=== PATIENT | male | born 1940 | race Caucasian/White ===

== ENCOUNTER → 2016-10-06 | Outpatient (CLI) | payer OTHER ==
[~2016-10-06] VITALS: Ht 177.8 cm; Wt 80.8 kg
[~2016-10-06] MED LIST: ADVIL LIQUI-GE200 MG PO; ALIGN4 MG PO; APAP500 PO; ASPIRIN EC81 M1 PO; CADUET 5 MG-401 EACH PO; COQ-10100 MG PO; FISHOIL PO; HYDROCODONE-AP1 EAC6 PO; METOPROLOL SUCC25 M1 PO; NEURONTIN 300300 M1 PO; NORCO 5-325 TA1 EACH PO; OMEGA 3 FISH OIL; TAMSULOSIN HCL0.4 MG PO; TOPROL XL50 MG PO; VITAMIN C PO; VITAMIN D32000 UNI1 PO; VITAMIN D400 UNI1 PO; VITAMINC500 PO; ZOLOFT 50 MG TA50 M1 PO; ZOLPIDEM TART12.5 M1 PO
--- NOTE | ~2016-10-06 | HPC ---
[facility] [address] [place] [address] PAIN MANAGEMENT CONSULTATION Name: GARCIADARRICK Elayne Room #: REG April Ortiz#: [id number] Admission: 10/06/16 Attend Phys: Negro Mayes DO Discharge: Date of : 39 Report #: [id number] THIS REPORT FOR: //name// CC: Narendra Mayes The patient is a pleasant 76-year-old gentleman being treated for lumbar radiculopathy secondary to spinal stenosis, neuropathic pain requiring complex medication management. Last seen in the pain clinic 07/11/2016. Continued on hydrocodone 5/325, given epidural injection L5-S1. Typically, these injections have afforded good relief, he had had injections since 2012, off and on. Last injection 07/11/2016, however, afforded nominal relief. Injection in March of this year afforded much better relief as did the injection in September and December. He returns to pain clinic today noting pain is primarily low back, buttock, posterior thigh with episodic radiation down to his legs. He has had 2 surgical procedures with installation of a posterior spinous process device between L5-S1 and L4-L5. The patient feels this really did not afford significant efficacy. Again, he notes the last injection at L5-S1 again afforded only nominal relief, 50% for 2 months, which is much less than his prior procedures. We had a long discussion today about therapeutic options and ongoing interval care. I reviewed the MRI from 08/02/2016 which notes the previous posterior fusions at L4-L5 and L5-S1, subluxations appearing unchanged from prior study of 2013, cjbz-ex-sidgmmxt stenosis at L3-L4, pyfn-zd-qvvrumvj stenosis at L4-L5, however, there is bilateral cortical impingement on the exiting roots at L5-S1. There is 2 mm anterolisthesis at this level. PHYSICAL EXAMINATION: Shows 76-year-old gentleman, BMI is 25.6 kilograms per meter squared. Vital signs stable as noted in the EMR. Rises from chair using armrest. Gait is tandem. Lower extremity strength is symmetric. Positive straight leg raise is nominally bilaterally. Diffuse tenderness across the low back. Lumbar flexion is modestly limited. Joanna test is negative. Range of motion of the hip is good. ASSESSMENT: Lumbar radiculopathy status post decompressive laminectomy requiring complex medication management, neuropathic pain component. RECOMMENDATIONS: 1. I had a long discussion with the patient today about therapeutic options. I have taken the liberty of renewing patient's hydrocodone 5/325, limit 3 tablets a day, 90 tablets. 2. We talked about spinal cord stimulator as a possible therapeutic option. 3. I had referred the patient to physical therapy in the past for core strength, although he stopped going. I have taken the liberty of renewing physical therapy today. Core strengthening exercises to be done at [place] [address] PAIN MANAGEMENT CONSULTATION Name: GARCIADARRICK Room #: REG RADHA Ortiz#: [id number] Admission: 10/06/16 Attend Phys: Negro Mayes DO Discharge: Date of : 39 Report #: [id number] 2. Acute exacerbation of lumbar radiculopathy secondary to spinal stenosis. RECOMMENDATIONS: We have elected to proceed with a caudal epidural injection under fluoroscopy today. If this does not afford adequate efficacy, we will feel that epidural injections in the lumbosacral canal seemed to have reached a point of diminishing returns and we will consider simply medication management, spinal cord stimulator as possible therapeutic option. PROCEDURE NOTE: Caudal epidural injection under fluoroscopy. PROCEDURE: After written informed consent was obtained, the patient taken to fluoroscopy suite, placed in prone position. After sterile prep and drape, skin wheal was raised. A 22-gauge epidural Tuohy needle was placed to the sacroiliitis and caudal epidural space. Negative aspiration was accomplished. A 1 mL of Omnipaque was injected, which showed spread within the caudal epidural space. This was followed with 80 mg triamcinolone plus 6 mL of 0.5% preservative-free lidocaine. [place] removed. The area was cleansed, Band-Aids applied. The patient monitored for an appropriate period of time, discharged in good and stable condition. <ELECTRONICALLY SIGNED> By: Negro Mayes DO 10/10/16 0917 1701 0023 Negro Mayes DO /nt
[2016-10-06 13:22] VITALS: BP 131/83
== END ==
LOC: PAIN 07:20
DX: M48.06 Spinal stenosis, lumbar region (principal); M54.16 Radiculopathy, lumbar region; M96.1 Postlaminectomy syndrome, not elsewhere classified

== ENCOUNTER → 2017-04-28 | Outpatient (CLI) | payer OTHER ==
[~2017-04-28] VITALS: Ht 177.8 cm; Wt 81.7 kg
[~2017-04-28] MED LIST changes: +FISH OIL 1,001000 M2 PO; +TOPROL XL25 MG PO; +VITAMIN B-12500 MCG PO; +VITAMIN D1000 UNI1 PO; +ZINC50 MG PO
--- NOTE | ~2017-04-28 | S ---
[facility] [place] [address] SURGICAL PATH RPT PROCEDURE Name: DARRICK PEREZ Room #: REG [facility].#: [id number] Admission: 04/28/17 Date of : 38 Discharge: Report #: [id number] Path Case #: [id number] PATHOLOGY REPORT COLLECTION DATE: 04/28/2017 RECEIVED DATE: 04/28/2017 SUBMITTING PHYS: Dr. Heriberto Chong OTHER PHYS: Dr. Narendra Kenney SPECIMEN(S) RECEIVED: A.Transverse colon * * * * * * * * * * * * FINAL DIAGNOSIS: Polyp, at transverse colon, endoscopic biopsy: - Hyperplastic polyp. - Negative for dysplasia. (IUV:loreto; 05/01/2017) PATHOLOGIST: Lidia Simpson M.D. REPORT ELECTRONICALLY SIGNED BY: Lidia Simpson M.D. DATE/TIME: 05/01/2017 15:18 * * * * * * * * * * * * GROSS PATHOLOGY: Received in formalin labeled "Darrick Perez, A polyp at transverse colon," is a segment of rodriguez soft tissue measuring 0.3 cm in maximum dimension. The specimen is submitted entirely in cassette A1. (TSD; 04/28/2017) CLINICAL HISTORY: Rectal bleeding INITIAL CPT CODE(S): A; 89046 Professional services performed by [facility] [address], [place] [address] Technical services performed by [facility] at [address] [place] [address]., [address] [address]. [facility] [address] [place] [address] SURGICAL PATH RPT PROCEDURE Name: DARRICK PEREZ Room #: REG RADHA Ortiz#: [id number] Admission: 04/28/17 Date of : 39 Discharge: Report #: [id number] Path Case #: [id number] [address] PHONE: [phone] DIRECTOR: Carlos Patel M.D. * * * END OF REPORT * * *
--- NOTE | ~2017-04-28 | EKG ---
[address] [place] [address] ELECTROCARDIOGRAM REPORT Name: RADHADARRICK Elayne WANG [facility] [id number] Admission: 04/28/17 Attend Phys: Heriberto Dunham Discharge: Date of : 39 Report #: [id number] THIS REPORT FOR: //name// [facility] Test Date: 2017-04-28 Test Time: 08:15:38 Pat Name: DARRICK GARCIA Department: Room: Gender: M Weight Guesser: : 1940 Requested By: Deidra Martin Order Number: [id number] MD: Christiano Crain Measurements Intervals [place] Rate: 61 P: 18 IA: 257 QRS: -18 QRSD: 92 T: 42 QT: 403 QTc: 406 Interpretive Statements Sinus rhythm Prolonged IA interval Compared to ECG 03/27/1998 06:26:00 Sinus bradycardia no longer present Electronically Signed On 04-28-2017 9:27:35 CDT by Christiano Crain [email or web address] <ELECTRONICALLY SIGNED> By: Christiano Crain MD 04/28/17 0927 4 4 Christiano Crain MD /NIKOLAY
[2017-04-28 09:18] LABS: CALCIUM 8.7 mg/dL (8.5-10.1); CREATININE 1.1 mg/dL (0.7-1.3)
== END | disposition home or self-care (01) ==
LOC: GI 07:44
PROVIDERS: Specialist
DX: K62.5 Hemorrhage of anus and rectum (principal); Z87.19 Personal history of other diseases of the digestive system; D12.3 Benign neoplasm of transverse colon; K57.30 Diverticulosis of large intestine without perforation or abscess without bleeding; K64.8 Other hemorrhoids
CPT/HCPCS: 62110; 62900

== ENCOUNTER → 2017-10-13 | Outpatient (CLI) | payer OTHER ==
[~2017-10-13] VITALS: Ht 177.8 cm; Wt 80.6 kg
[~2017-10-13] MED LIST changes: +TYLENOL EXTRA500 MG PO
--- NOTE | ~2017-10-13 | HPC ---
[facility] [place] [address] PAIN MANAGEMENT CONSULTATION Name: DARRICK GARCIA Room #: [facility] [id number] Admission: 10/13/17 Attend Phys: Negro Mayes DO Discharge: Date of : 39 Report #: [id number] THIS REPORT FOR: //name// CC: Narendra Mayes DATE OF SERVICE: 10/13/2017 HISTORY OF PRESENT ILLNESS: The patient is a 77-year-old gentleman, prior seen in the pain clinic on 10/06/2016, nearly a year ago to the date. He was given a caudal RONNI with excellent improvement of lumbar radicular pain. The patient notes pain has gradually begun to recur, but it is actually a little different. He notes he had a 100% relief for 10 months following the caudal injection, but has pain recurs. It is in the low back and buttock. He notes that this seems to be getting worse in the mornings. He rates it a 2-3 on a VAS at present. PHYSICAL EXAMINATION: GENERAL: Shows a 77-year-old gentleman, BMI is 25.5 kilograms per meter squared. VITAL SIGNS: Blood pressure is modestly elevated at 147/91, pulse 64, respirations 20. MUSCULOSKELETAL: Rises from chair using armrest. Diffuse tenderness across the low back. He has posterior spinous fixators at L4-L5 and L5-S1. Pain appears to be over the L5-S1 facets, though he does have, by history and MRI findings (08/02/2016), bilateral cortical impingement upon the exiting nerve root at L5-S1 bilaterally. Lower extremity strength is symmetric. Straight leg raise is modestly positive. ASSESSMENT: 1. Symptomatic lumbar radiculopathy secondary to spinal stenosis status post posterior fusion, percutaneous implant at L4-L5 and L5-S1. 2. Neuropathic pain, component of lumbar spondylosis. RECOMMENDATIONS: After a long discussion with the patient today, we would like to repeat caudal epidural injection given the excellent improvement he had had at last visit. If, however, this does not afford adequate relief, we may bring the patient back for fluoroscopic-guided facet joint injections at L5-S1 and perhaps above the fusion at L3-L4 as well. Continue current medication, which for pain is simply Tylenol kgha-sjh-huqanyx. Follow up in 2 weeks for reevaluation, consideration for facet joint injection under fluoroscopy if indicated clinically. Thanks for allowing me to participate in the patient's care. PROCEDURE: Caudal epidural injection under fluoroscopy. [address] [address] PAIN MANAGEMENT CONSULTATION Name: DARRICK GARCIA [facility] #: [facility] [id number] Admission: 10/13/17 Attend Phys: Negro Mayes DO Discharge: Date of : 39 Report #: [id number] DESCRIPTION OF PROCEDURE: After written and informed consent was obtained, the patient was taken to the fluoroscopy suite and placed in prone position. After sterile prep and drape, skin wheal was raised. A 22-gauge stylet needle was placed through the sacral hiatus into the caudal epidural space. Negative aspiration was accomplished. A 1 mL of Omnipaque was injected, which showed spread within the caudal space. This was followed with 80 mg triamcinolone plus 3 mL of 0.5% preservative-free lidocaine. Needle was removed. The area was cleansed. Band-Aids applied. Fluoroscopy time was 8 seconds. The patient was monitored for an appropriate period of time, discharged in good and stable condition. Follow up in 2 weeks. The patient to cancel if doing well. <ELECTRONICALLY SIGNED> By: Negro Mayes DO 10/16/17 0816 1319 0626 Negro Mayes DO /nt
[2017-10-13 09:55] VITALS: BP 147/91
== END | disposition home or self-care (01) ==
LOC: PAIN 06:48
DX: M48.061 Spinal stenosis, lumbar region without neurogenic claudication (principal); M47.896 Other spondylosis, lumbar region; Z98.890 Other specified postprocedural states; Z79.891 Long term (current) use of opiate analgesic; Z79.82 Long term (current) use of aspirin; Z79.899 Other long term (current) drug therapy

== ENCOUNTER → 2018-01-29 | Outpatient (CLI) | payer OTHER ==
[~2018-01-29] VITALS: Ht 177.8 cm; Wt 79.0 kg
--- NOTE | ~2018-01-29 | HPC ---
[facility] [place] [address] PAIN MANAGEMENT CONSULTATION Name: GARCIADARRICK Room #: [facility] [id number] Admission: 01/29/18 Attend Phys: Negro Mayes DO Discharge: Date of : 39 Report #: [id number] THIS REPORT FOR: //name// CC: Narendra Mayes HISTORY OF PRESENT ILLNESS: The patient is a 77-year-old gentleman being treated for lumbar radiculopathy, status post decompressive laminectomy, neuropathic pain, myofascial pain component, spinal stenosis, component of lumbar spondylosis without myelopathy. At last visit on 10/13/2017, we proceeded with epidural injection via caudal approach. Prior caudal injection in 09/2016 afforded 10 months relief. The patient returns to pain clinic today noting that the last caudal injection afforded only nominal relief. He does note pain is primarily located in the low back, buttock, posterior leg, stops at the knee. He does have positive straight leg raise on the right with slight decreased hip flexion strength and posterior extension strength. Rotation and sidebending do not exacerbate pain. Lumbar spondylitic component appears to be fairly nominal. MOST RECENT DIAGNOSTIC STUDIES: An MRI from 07/2016 which did note a prior posterior spinous process fusion L4-L5 and L5-S1. There was moderate spinal stenosis at multiple levels. There was some cortical impingement upon the exiting L5 nerve roots at the L5-S1 level. ASSESSMENT: Symptomatic lumbar radiculopathy secondary to spinal stenosis in a patient status post posterior fusion L4-L5, L5-S1. RECOMMENDATION: After discussion with the patient, we elected to move forward with epidural injection under fluoroscopy today at L5-S1, I have taken the liberty of writing for an MRI of the lumbar spine with and without contrast in 1 week if he does not afford adequate relief. Follow up in 2 weeks for evaluation. Cancel both MRI and followup appointment if doing well. ASSESSMENT: Symptomatic lumbar radiculopathy status post decompressive laminectomy. PROCEDURE: Lumbar epidural injection under fluoroscopy. PROCEDURE NOTE: After both written and informed consent to include risk of spinal cord damage, increased pain, weakness and dural puncture, the patient was taken to the fluoroscopy suite, placed in the prone position. After sterile prep and drape, a skin wheal with lidocaine was raised. A 22-gauge epidural Tuohy needle was inserted in the midline at L5-S1 with good loss to resistance. Negative aspiration for cerebrospinal fluid or blood was noted. Then 1 mL of Omnipaque under biplanar fluoroscopy showed good spread within the epidural space. This was followed with 80 mg of triamcinolone plus 1 mL of 1.5% [place] [address] PAIN MANAGEMENT CONSULTATION Name: DARRICK GARCIA Room #: REG RADHA Ortiz#: [id number] Admission: 01/29/18 Attend Phys: Negro Mayes DO Discharge: Date of : 39 Report #: [id number] preservative-free Xylocaine, 0.5 mL Xylocaine was then injected to flush the needle; it was removed. The patient was monitored for an appropriate period of time and discharged in good and stable condition. <ELECTRONICALLY SIGNED> By: Negro Mayes DO 02/01/18 0701 1145 1303 Negro Mayes DO /nt
[2018-01-29 08:29] VITALS: BP 128/69
== END | disposition home or self-care (01) ==
LOC: PAIN 05:35
DX: M54.16 Radiculopathy, lumbar region (principal); M47.816 Spondylosis without myelopathy or radiculopathy, lumbar region; M48.061 Spinal stenosis, lumbar region without neurogenic claudication; M79.1 Myalgia; G62.9 Polyneuropathy, unspecified; Z98.890 Other specified postprocedural states

== ENCOUNTER → 2018-02-07 | Outpatient (CLI) | payer OTHER | LOC: MRI 02-06 14:20 | DX: M47.897 Other spondylosis, lumbosacral region (principal); M48.061 Spinal stenosis, lumbar region without neurogenic claudication; Z98.890 Other specified postprocedural states ==

== ENCOUNTER → 2020-07-28 | Outpatient (CLI) | payer OTHER | LOC: MRI 08:48 | PROVIDERS: ATTEND Family Medicine | DX: M47.816 Spondylosis without myelopathy or radiculopathy, lumbar region (principal); M51.37 Other intervertebral disc degeneration, lumbosacral region; M47.817 Spondylosis without myelopathy or radiculopathy, lumbosacral region; M48.061 Spinal stenosis, lumbar region without neurogenic claudication; M47.815 Spondylosis without myelopathy or radiculopathy, thoracolumbar region; M25.78 Osteophyte, vertebrae ==

== ENCOUNTER → 2020-10-30 | Outpatient (CLI) | payer OTHER | LOC: MRI 08:51 | PROVIDERS: ATTEND Family Medicine | DX: I67.82 Cerebral ischemia (principal); G20 Parkinson's disease; G31.1 Senile degeneration of brain, not elsewhere classified ==

== ENCOUNTER → 2021-04-27 | Outpatient (CLI) | payer OTHER | LOC: PET 09:40 | PROVIDERS: ATTEND Family Medicine | DX: R41.3 Other amnesia (principal); R91.8 Other nonspecific abnormal finding of lung field ==